=== PATIENT | female | born 1955 | race Caucasian/White ===

== ENCOUNTER → 2017-03-04 | Outpatient (CLI) | payer BC ==
--- NOTE | 2017-03-04 11:49 | REP ---
RIGHT FOOT, FOUR VIEWS: HISTORY: Pain. There is no acute fracture or dislocation. The joint spaces are normal in appearance. IMPRESSION: There is no acute fracture or dislocation. Signed by Orville Tello MD 03/04/2017 11:56 A
== END ==
LOC: M WUC 11:10
PROVIDERS: ATTEND Physician Assistant
DX: M79.671 Pain in right foot (principal)